=== PATIENT | male | born 1960 | race Caucasian/White ===

== ENCOUNTER 2018-07-08 10:13 | Day surgery (SDC) | payer OTHER ==
[~2018-07-08 10:13] MED LIST: LIDOCAINE 2% (SDV) 5 ML INJ
[2018-07-08] MEDS ORDERED: PROPOFOL 60 ML (12:00)
== END 2018-07-08 14:36 | disposition home or self-care (01) ==
LOC: GIL 10:13
DX: Z12.11 Encounter for screening for malignant neoplasm of colon (principal); D12.2 Benign neoplasm of ascending colon; K63.89 Other specified diseases of intestine; E11.9 Type 2 diabetes mellitus without complications; I10 Essential (primary) hypertension; E66.01 Morbid (severe) obesity due to excess calories; Z68.42 Body mass index [BMI] 45.0-49.9, adult
CPT/HCPCS: 45385; 82962; 88305